=== PATIENT | female | born 1985 | race Caucasian/White ===

== ENCOUNTER 2017-07-14 16:07 | Inpatient (IN) | payer MEDICAID ==
[2017-07-14 16:50] LABS: ADD MAN DIFF? NO
[2017-07-14 16:53] LABS: BASOPHILS % 0.3 % (0.0-2.0); EOSINOPHILS % 0.3 % (0.0-7.0); HEMOGLOBIN 13.9 g/dl (12.0-16.0); LYMPHOCYTES # 1.9 10^3/ul (0.8-2.9); LYMPHOCYTES % 17.3 % (15.0-51.0); MEAN CORPUSCULAR HGB CONC 35.6 g/dl (32.0-37.0); MEAN CORPUSCULAR VOLUME 89.7 fl (82.0-101.0); MEAN PLATELET VOLUME 10.1 fl (7.4-10.4); MONOCYTE # 0.6 10^3/ul (0.3-0.9); MONOCYTES % 5.5 % (0.0-11.0); NEUTROPHIL # 8.3 10^3/ul (1.6-7.5); NEUTROPHILS % 75.9 % (39.0-77.0); PLATELET COUNT 198 10^3/UL (140-415); RED BLOOD COUNT 4.35 10^6/ul (4.20-5.40); RED CELL DISTRIBUTION WIDTH 12.5 % (11.5-14.5)
[2017-07-14] MEDS: LACTATED RINGER'S 1,000 ML IV ×2 (16:53→17:12)
[2017-07-14] MEDS ORDERED: LIDOCAINE 1% (MPF) 30 ML INJ INJ (17:00)
[2017-07-14] MEDS ORDERED: MISOPROSTOL 200 MCG TAB PR (17:00)
[2017-07-14] MEDS ORDERED: CARBOPROST 250 MCG INJ IM (17:00)
[2017-07-14] MEDS ORDERED: BUTORPHANOL 2 MG INJ IV (17:00)
[2017-07-14] MEDS ORDERED: OXYTOCIN 30 UNITS/LR 500 ML IV ×2 (17:00→21:30)
[2017-07-14] MEDS ORDERED: METHYLERGONOVINE 0.2 MG INJ IM (17:00)
[2017-07-14 17:19] LABS: INR 0.83; PROTIME 11.5 Sec (11.9-14.9); PT RATIO 0.9
[2017-07-14 17:20] LABS: PARTIAL THROMBOPLASTIN TIME 29.2 Sec (25.0-35.0)
[2017-07-14 18:49] LABS: HEPATITIS B SURFACE ANTIGEN NEGATIVE (NEGATIVE)
[2017-07-14 18:59] LABS: HIV 1&2 ANTIBODY NEGATIVE (NEGATIVE)
[2017-07-14 21:18] LABS: AMPHETAMINE/METHAMPHETAMINE Negative (NEGATIVE); BARBITURATES Negative (NEGATIVE); BENZODIAZEPINES Negative (NEGATIVE)
[2017-07-14 21:19] LABS: CANNABINOIDS Negative (NEGATIVE); COCAINE Negative (NEGATIVE); OPIATES Negative (NEGATIVE)
[2017-07-14] MEDS: ACETAMINOPHEN 325 MG TAB PO (21:34)
[2017-07-14] MEDS: BUTORPHANOL 2 MG INJ IV (21:54)
[2017-07-15] MEDS: LACTATED RINGER'S 1,000 ML IV ×2 (00:25→06:44)
[2017-07-15] MEDS ORDERED: FENTAnyl 2MCG/ML-ROPIV 0.2% 100 ML (07:08)
[2017-07-15] MEDS: OXYTOCIN 30 UNITS/LR 500 ML IV (08:24)
[2017-07-15] MEDS ORDERED: FENTAnyl 2MCG/ML-ROPIV 0.2% 100 ML BAG EPI (08:30)
[2017-07-15] MEDS ORDERED: NALOXONE (0.4 MG/ML) INJ IV (08:30)
[2017-07-15] MEDS ORDERED: OXYTOCIN 30 UNITS/LR 500 ML IV (10:49)
[2017-07-15] MEDS ORDERED: ACETAMINOPHEN 325 MG TAB PO (11:00)
[2017-07-15] MEDS ORDERED: ONDANSETRON 4 MG INJ IV (11:00)
[2017-07-15] MEDS ORDERED: OXYCODONE/ASPIRIN (4.88/325) TAB PO ×2 (11:00)
[2017-07-15] MEDS ORDERED: DIBUCAINE 1% 30 GM OINT PR (11:00)
[2017-07-15] MEDS ORDERED: HYDROCODONE/APAP (5/325) TAB PO ×2 (11:00)
[2017-07-15] MEDS: IBUPROFEN 600 MG TAB PO ×3 (12:11→23:38)
[2017-07-15] MEDS: WITCH HAZEL/GLYCERIN PAD PR (12:12)
[2017-07-15] MEDS: LANOLIN 7 GM TUBE TOP (12:13)
[2017-07-15] MEDS: BENZOCAINE 20% 56 ML SPRAY TOP (12:14)
[2017-07-15 17:30] LABS: RAPID PLASMA REAGIN NONREACTIVE (NR)
[2017-07-15] MEDS: SENNA/DOCUSATE NA (8.6MG/50MG) TAB PO (20:41)
[2017-07-16] MEDS: IBUPROFEN 600 MG TAB PO ×4 (05:23→23:38)
[2017-07-16] MEDS: SENNA/DOCUSATE NA (8.6MG/50MG) TAB PO ×2 (08:45→21:16)
[2017-07-16 09:19] LABS: ADD MAN DIFF? NO
[2017-07-16 09:23] LABS: WHITE BLOOD COUNT 9.2 10^3/ul (4.8-10.8)
[2017-07-16 09:23] LABS: BASOPHILS % 0.4 % (0.0-2.0); EOSINOPHILS % 0.3 % (0.0-7.0); HEMOGLOBIN 12.9 g/dl (12.0-16.0); LYMPHOCYTES % 21.4 % (15.0-51.0); MEAN CORPUSCULAR HEMOGLOBIN 32.4 pg (29.0-33.0); MEAN CORPUSCULAR HGB CONC 35.8 g/dl (32.0-37.0); MEAN CORPUSCULAR VOLUME 90.5 fl (82.0-101.0); MONOCYTE # 0.5 10^3/ul (0.3-0.9); MONOCYTES % 5.1 % (0.0-11.0); NEUTROPHIL # 6.7 10^3/ul (1.6-7.5); NEUTROPHILS % 72.3 % (39.0-77.0); PLATELET COUNT 165 10^3/UL (140-415); RED BLOOD COUNT 3.98 10^6/ul (4.20-5.40)
[2017-07-17] MEDS: IBUPROFEN 600 MG TAB PO ×2 (05:33→11:57)
[2017-07-17] MEDS: SENNA/DOCUSATE NA (8.6MG/50MG) TAB PO (08:22)
[2017-07-17] MEDS: MEASLES,MUMPS,RUBELLA VACCINE INJ SC* (09:00)
== END 2017-07-17 13:10 | disposition home or self-care (01) | DRG 775 ==
LOC: OBT 16:07 → PP1 07-15 09:41 → L-D 16:14 → OBT 16:40 → L-D 16:40
PROVIDERS: Obstetrics & Gynecology
PROC: 4A1HXCZ Monitoring of Products of Conception, Cardiac Rate, External Approach (ICD-10-PCS; 2017-07-14)
PROC: 10E0XZZ Delivery of Products of Conception, External Approach (ICD-10-PCS; principal; 2017-07-15)
DX: O69.81X0 Labor and delivery complicated by cord around neck, without compression, not applicable or unspecified (principal); Z37.0 Single live birth; Z3A.39 39 weeks gestation of pregnancy
CPT/HCPCS: 62319; 80307; 85025; 85610; 85730; 86592; 86703; 86900; 86901; 87340; 88307; 99464